=== PATIENT | female | born 2000 | race African-American/Black ===

== ENCOUNTER 2019-07-02 20:44 | Emergency (ER) | payer OTHER ==
[~2019-07-02] VITALS: Ht 157.5 cm; Wt 73.0 kg
[2019-07-02 22:01] VITALS: BP 118/76
== END 2019-07-02 22:02 | disposition home or self-care (01) ==
LOC: ER 20:44
DX: S63.615A Unspecified sprain of left ring finger, initial encounter (principal); J45.909 Unspecified asthma, uncomplicated; Y04.0XXA Assault by unarmed brawl or fight, initial encounter; Y93.89 Activity, other specified; Y92.89 Other specified places as the place of occurrence of the external cause; Y99.8 Other external cause status

== ENCOUNTER 2019-08-04 07:36 | Emergency (ER) | payer OTHER ==
[~2019-08-04] VITALS: Ht 157.5 cm; Wt 73.0 kg
[2019-08-04 07:38] VITALS: BP 108/75
[2019-08-04] MEDS ORDERED: PROAIR HFA8.5 GM INH ×2 (07:43→08:07)
[2019-08-04] MEDS ORDERED: DULERA 100 MCG/13 GM PO (07:44)
[2019-08-04] MEDS ORDERED: PREDNISONE 10 M10 M1 PO (08:06)
== END 2019-08-04 08:24 | disposition home or self-care (01) ==
LOC: ER 07:36
DX: J45.901 Unspecified asthma with (acute) exacerbation (principal)

== ENCOUNTER 2019-10-04 18:53 | Emergency (ER) | payer OTHER ==
[~2019-10-04] VITALS: Ht 160 cm; Wt 69.8 kg
[~2019-10-04 18:53] MED LIST: DULERA 100 MCG/13 GM PO; PREDNISONE 10 M10 M1 PO; PROAIR HFA8.5 GM INH
[2019-10-04] MEDS ORDERED: ERYTHROMYCIN E3.5 G3 OPHTHALMIC (20:45)
[2019-10-04 20:51] VITALS: BP 109/73
== END 2019-10-04 20:51 | disposition home or self-care (01) ==
LOC: ER 18:53
DX: H10.9 Unspecified conjunctivitis (principal)

== ENCOUNTER 2020-06-09 16:01 | Emergency (ER) | payer OTHER ==
[~2020-06-09] VITALS: Ht 157.5 cm; Wt 68.0 kg
[~2020-06-09 16:01] MED LIST changes: +ERYTHROMYCIN E3.5 G3 OPHTHALMIC
[2020-06-09 17:41] LABS: ABSOLUTE NEUTROPHILS 9.4 thou/uL (1.4-8.2); BASOPHILS 0.3 % (0.0-2.0); HEMATOCRIT 39.2 % (37.0-47.0); MCH 22.4 pg (26.0-34.0); MCHC 33.2 g/dL (28.0-37.0); MCV 67.5 fL (80.0-100.0); MONOCYTES 4.7 % (1.0-8.0); PLATELET COUNT 219 thou/uL (150-400); RBC 5.81 mil/uL (4.20-5.00); RDW 15.7 % (10.5-14.5); WBC 10.9 thou/uL (4.0-11.0)
[2020-06-09 17:48] LABS: CREATININE 0.9 mg/dL (0.6-1.0); POTASSIUM 3.4 mmol/L (3.5-5.1)
[2020-06-09] MEDS ORDERED: PREDNISONE 20 M20 MG PO (18:48)
[2020-06-09] MEDS ORDERED: ZITHROMAX250 MG PO (18:49)
[2020-06-09 19:07] VITALS: BP 126/78
--- NOTE | 2020-06-10 08:46 | EKG ---
[facility] [place] [address] ELECTROCARDIOGRAM REPORT Name: JIMMY KAMARA [facility]ENTER[facility]ont[facility] [id number] Admission: 06/09/20 Attend Phys: Discharge: 06/09/20 Date of : 89 Report #: [id number] THIS REPORT FOR: cc: LISE Perez family physician/PCP LISE Perez family physician/PCP Marshall Serna MD [facility] ~ THIS REPORT FOR: //name// [facility] ED Test Date: 2020-06-09 Test Time: 17:20:35 Pat Name: JIMMY KAMARA Department: Room: Gender: F Recreation Clerk: YURY NELY : 2000 Requested By: Aki Foster Order Number: [id number] MD: Marshall Serna Measurements Intervals [place] Rate: 125 P: 72 MT: 116 QRS: 63 QRSD: 80 T: -66 QT: 384 QTc: 554 Interpretive Statements Sinus tachycardia Nonspecific T abnormalities, inferior leads Prolonged QT interval No previous ECG available for comparison Electronically Signed On 06-10-2020 8:46:25 CDT by Marshall eSrna [email or web address] <ELECTRONICALLY SIGNED> By: Marshall Serna MD, FACC 06/10/20 0846 1720 172 Marshall Serna MD, [facility] /EPI
== END 2020-06-09 19:07 | disposition home or self-care (01) ==
LOC: ER 16:01
PROVIDERS: Emergency Medicine
DX: J45.901 Unspecified asthma with (acute) exacerbation (principal); Z20.828 Contact with and (suspected) exposure to other viral communicable diseases; Z88.1 Allergy status to other antibiotic agents; Z88.8 Allergy status to other drugs, medicaments and biological substances; Z79.899 Other long term (current) drug therapy

== ENCOUNTER 2021-05-13 17:24 | Emergency (ER) | payer OTHER ==
[~2021-05-13] VITALS: Ht 157.5 cm; Wt 72.6 kg
[~2021-05-13 17:24] MED LIST changes: +PREDNISONE 20 M20 MG PO; +ZITHROMAX250 MG PO
[2021-05-13 17:33] VITALS: BP 115/74
== END 2021-05-13 18:16 | disposition home or self-care (01) ==
LOC: ER 17:24
PROVIDERS: Nurse Practitioner Family
DX: J02.9 Acute pharyngitis, unspecified (principal); Z20.822 Contact with and (suspected) exposure to COVID-19; J45.909 Unspecified asthma, uncomplicated; Z79.899 Other long term (current) drug therapy

== ENCOUNTER 2021-10-04 12:14 | Emergency (ER) | payer OTHER ==
[~2021-10-04] VITALS: Ht 157.5 cm; Wt 76.7 kg
[2021-10-04 14:07] VITALS: BP 114/70
[2021-10-04] MEDS ORDERED: SYMBICORT160 MCG/4. INH (15:41)
[2021-10-04] MEDS ORDERED: PROAIR HFA8.5 GM INH (15:41)
== END 2021-10-04 16:48 | disposition home or self-care (01) ==
LOC: ER 12:14
DX: J45.909 Unspecified asthma, uncomplicated (principal); Z20.822 Contact with and (suspected) exposure to COVID-19